=== PATIENT | female | born 1960 | race Caucasian/White ===

== ENCOUNTER 2018-11-12 10:48 | Day surgery (SDC) | payer BC ==
--- NOTE | 2018-11-12 07:55 | HP ---
DATE OF SURGERY: 11/12/2018 HISTORY OF PRESENT ILLNESS: The patient is a 57 year-old abdominal pain unclear etiology for months with salads and nuts intermittently. She has some history of some urinary infections. Last colonoscopy was 2011, did not know whether she had any polyps or not at that time. PAST MEDICAL HISTORY: Hypertension. PAST SURGICAL HISTORY: Complete hysterectomy in 2001. MEDICATIONS: Toprol, lisinopril. ALLERGIES: SULFA, METRONIDAZOLE. FAMILY HISTORY: Cancer, diabetes, hypertension. SOCIAL HISTORY: No smoking or alcohol abuse. REVIEW OF SYSTEMS: Twelve systems reviewed. No chest pain or palpitations other systems negative or noncontributory as above and per preadmission questionnaire. PHYSICAL EXAMINATION: GENERAL: No acute distress. HEENT: Sclerae nonicteric. NECK: No JVD. CHEST: Equal excursion, nonlabored breathing. CVS: Regular rate and rhythm. ABDOMEN: Soft. No peritoneal signs. EXTREMITIES: No significant edema. NEURO: Alert, oriented, moving extremities symmetrically. No gross motor deficits noted. RECTAL: Deferred timed to endoscopy exam. IMPRESSION: Abdominal pain unclear etiology. I feel she is need of follow up screening colonoscopy. I feel she is a candidate. Shown the risk sheet and explained the procedure in detail but not limited to bleeding, infection, risk of bowel injury or perforation possibly requiring open procedure, risk of missed or nondiagnosis or incomplete exam possibly requiring barium enema, other studies or procedures. General risk of anesthesia or sedation. Risk of bowel prep, postoperative risk of nausea or cramping but not limited to. She has failed to show any specific etiology of her symptoms. I feel she would benefit from colonoscopy to elicit the etiology of her symptoms. She understands and agrees to the planned procedure, will proceed with outpatient colonoscopy under MAC anesthesia.
[2018-11-12] MEDS ORDERED: DIPRIVAN 200 MG/20 ML IV ONE (10:49)
[2018-11-12] MEDS ORDERED: Lactated Ringers 1,000 ML IV SCH (11:00)
[2018-11-12] MEDS ORDERED: Lactated Ringers 1,000 ML IV ONE (11:12)
[2018-11-12 14:31] VITALS: PULSE 68; O2SAT 97
[2018-11-12 15:04] VITALS: BP 157/88
--- NOTE | 2018-11-12 15:30 | OP ---
SURGERY DATE/TIME: 11/12/2018 1321 PREOPERATIVE DIAGNOSES: 1) Need for follow up screening colonoscopy. 2) History of some vague abdominal aches and pain in the past. POSTOPERATIVE DIAGNOSES: 1) Small ascending colon polyp. 2) Small raised lesion versus hyperplastic lesion rectosigmoid colon and cecum path pending versus hyperplasia of mucosa path pending. 3) Mild few diverticula. 4) Small internal and external hemorrhoids. 5) Tortuous colon. PROCEDURES: 1) Colonoscopy terminal ileum. 2) Retrograde ileoscopy. 3) Random cold biopsy of ileum to evaluate for microscopic ileitis, evaluate for inflammatory bowel disease path pending. 4) Random cold colon biopsies to evaluate for microscopic colitis. 5) Hot biopsy removal of small ascending colon polyp. 6) Hot biopsy removal of small raised lesion versus hyperplastic lesion path pending versus other polyps cecum and rectosigmoid colon x2. SURGEON: Dr. Jesse Michele. ANESTHESIA: MAC. ESTIMATED BLOOD LOSS: Minimal. INDICATIONS: As noted above. Risks and benefits explained in detail but not limited to and consent obtained. DESCRIPTION OF PROCEDURE AND FINDINGS: The patient is taken to the operating room. MAC anesthesia introduced. After official time out and no disagreement with planned procedure, digital rectal exam did not reveal any rectal masses. She did have some internal and external hemorrhoids. Video colonoscope inserted and passed up through the tortuous sigmoid, descending, ascending, transverse colon, ascending colon. With external pressure the scope was able to be passed around to the cecum. Appendiceal orifice and valve well visualized. Scope passed up the terminal ileum. There was some lymphoid hyperplasia type nodules but not quite extensive enough to call robin Crohns. Cold biopsy taken to evaluate for microscopic ileitis versus normal variation versus early inflammatory bowel disease path pending. Otherwise the scope is slowly and carefully withdrawn. Prep overall was fair with some liquidy stool throughout the colon requiring suction irrigating as well as possible, just slightly limiting the exam. The small vague raised area in the cecum removed with hot biopsy forceps. Good hemostasis noted. Just small polyp about 2.5 mm size removed with hot biopsy forceps in the ascending colon. Good hemostasis noted. Otherwise she had few diverticula in the left colon. There were no signs of any large polyps, masses or obstructing lesions. She had two or three small raised lesions versus hyperplastic lesions that were removed in the rectosigmoid colon otherwise she had some small internal and external hemorrhoids. There were no signs of any large polyps, masses or obstructing lesions. Some random cold biopsies had been taken in the colon to evaluate for microscopic colitis as well. The patient tolerated the procedure well. Findings discussed with the family out in the waiting area. We will see her back in the office to go over the results.
== END 2018-11-12 15:05 | disposition home or self-care (01) ==
LOC: SDC 10:48
PROVIDERS: ATTEND Surgery
DX: Z12.11 Encounter for screening for malignant neoplasm of colon (principal); K63.5 Polyp of colon; D12.2 Benign neoplasm of ascending colon; K57.30 Diverticulosis of large intestine without perforation or abscess without bleeding; K64.4 Residual hemorrhoidal skin tags; K64.8 Other hemorrhoids; K63.9 Disease of intestine, unspecified
CPT/HCPCS: J2704

== ENCOUNTER 2024-07-22 11:28 | Day surgery (SDC) | payer MEDICARE ==
--- NOTE | 2024-07-22 09:19 | HP ---
HISTORY OF PRESENT ILLNESS: History of polyps. No bloody stools. Rare hemorrhoid flare-up occasionally. No change in bowel habits. No new pain. Family history negative for colon cancer. PAST MEDICAL HISTORY: Hypertension, history of dysrhythmia. HOME MEDICATIONS: Estradiol 0.01% vaginal cream, multivitamin, aspirin, lisinopril, metoprolol. ALLERGIES: Latex, sulfa. PAST SURGICAL HISTORY: Hysterectomy, history of colonoscopy in the past. SOCIAL HISTORY: No smoking or alcohol abuse. FAMILY HISTORY: Negative for cancer, heart disease. REVIEW OF SYSTEMS: Twelve systems reviewed. No chest pain or palpitations. Other systems negative or noncontributory as above and per preadmission questionnaire. PHYSICAL EXAMINATION: GENERAL: Height 5 feet 2 inches. BMI 31.09. No acute distress. HEENT: Sclerae anicteric. Extraocular movements intact. NECK: No JVD. CHEST: Equal excursion, nonlabored breathing. CARDIOVASCULAR: Regular rate and rhythm. ABDOMEN: Soft. SKIN: Dry. EXTREMITIES: No cyanosis or edema. NEUROLOGIC: Alert. Moving all extremities symmetrically. PSYCHIATRIC: Appropriate mood and affect. RECTAL: Deferred until time of endoscopy exam. IMPRESSION: History of polyps, needs followup screening colonoscopy. The patient is a candidate. Risks and benefits explained in detail including bleeding, infection; risks of bowel injury or perforation possibly requiring other procedure; risk of missed or nondiagnosis or incomplete exam possibly requiring barium enema or other studies or procedures; risk of anesthesia or sedation; risk of bowel prep, but not limited to. We will proceed with outpatient colonoscopy under MAC anesthesia, followup screening colonoscopy. Otherwise, continue medication for hypertension and heart disease.
[2024-07-22] MEDS ORDERED: Lactated Ringers 1,000 ML IV SCH (12:00)
[2024-07-22 12:07] VITALS: RESP 16
[2024-07-22 12:11] LABS: ANION GAP 13.1 MEQ/L (5-15); Calcium 9.4 mg/dL (8.4-10.2); Creatinine 1 0.81 mg/dL (0.52-1.04); EST GLOMERULAR FILTRATION RATE 80.5 ML/MIN; Potassium 4.1 mmol/L (3.5-5.1)
[2024-07-22] MEDS ORDERED: propofoL IV ONE ×2 (12:36→12:48)
[2024-07-22 13:26] VITALS: BP 131/65; PULSE 66; O2SAT 100
[2024-07-22 13:31] VITALS: TEMP 97.1
--- NOTE | 2024-07-23 18:25 | OP ---
SURGERY DATE/TIME: 07/22/2024 [id number] PREOPERATIVE DIAGNOSIS: Need for screening colonoscopy. POSTOPERATIVE DIAGNOSES: 1) Small early polyp versus hyperplastic lesion in rectum. 2) Small vague raised area versus hyperplastic lesion in the cecum. 3) Good bowel prep. 4) ASA class 3. 5) Withdrawal time was approximately 9 minutes. PROCEDURES: 1) Colonoscopy to cecum. 2) Hot biopsy of vague small raised area of the cecum. 3) Hot biopsy polypectomy of small rectal polyp. SURGEON: Chris Michele MD ANESTHESIA: MAC. ESTIMATED BLOOD LOSS: Minimal. INDICATIONS: As noted above. The risks and benefits were explained in detail, not limited to. Consent obtained. DESCRIPTION OF PROCEDURE AND FINDINGS: The patient was taken to the operating room. MAC anesthesia was induced. After official time-out, digital rectal exam did not reveal any rectal masses. Videocolonoscope was inserted and passed up through the tortuous sigmoid, descending, transverse, and ascending colon. With external pressure, the scope was easily passed around to cecum. Appendiceal orifice and valve were well visualized and photo documented. The prep overall was good. ASA class 3. The scope was carefully withdrawn over the next 9 minutes. There were no signs of any large polyps, masses, or obstructing lesions. There was a vague area in the cecum, a small raised lesion, whether this was an early hyperplastic lesion versus some hyperplasia of the mucosa, it was biopsied with hot biopsy forceps. Good hemostasis was noted. On careful withdrawal of the scope, prep was good. There were no signs of any large diverticula. The scope was slowly and carefully withdrawn back to the rectum. In proximal rectum, a 2 mm small early polyp versus hyperplastic lesion was removed with hot biopsy forceps. Good hemostasis noted. The scope was withdrawn. Findings discussed with family out in the waiting area.
== END 2024-07-22 13:33 | disposition home or self-care (01) ==
LOC: SDC 11:28
PROVIDERS: ATTEND Surgery
DX: Z12.11 Encounter for screening for malignant neoplasm of colon (principal); K62.1 Rectal polyp; K63.5 Polyp of colon; I10 Essential (primary) hypertension
CPT/HCPCS: 36415; 80048; J2704